=== PATIENT | male | born 1950 | race Caucasian/White ===

== ENCOUNTER → 2016-04-15 | Outpatient (CLI) | payer MEDICARE, BC ==
[2016-04-15 15:50] LABS: CH 31.1; CHCM 32.7; HDW 2.25; HGB 13.4 gm/dL (13.0-17.5); MCH 30.5 pg (25.0-35.0); MCHC 31.9 g/dL (31.0-37.0); MCV 95.5 fL (80.0-100.0); Mean Platelet Volume 8.9; RDW 13.2 % (11.5-15.5); WBC 6.6 k/uL (3.8-10.6)
[2016-04-15 16:01] LABS: ALT 34 U/L (21-72); AST 31 U/L (17-59); Alkaline Phosphatase 70 U/L (38-126); Anion Gap 10 mmol/L; Blood Urea Nitrogen 18 mg/dL (9-20); Calcium 9.2 mg/dL (8.4-10.2); Carbon Dioxide 29 mmol/L (22-30); Chloride 101 mmol/L (98-107); Glucose 82 mg/dL (74-99); Non-African American GFR(MDRD) >60 (>60 ml/min/1.73 sqM); Potassium 4.5 mmol/L (3.5-5.1); Sodium 140 mmol/L (137-145); Total Bilirubin 0.8 mg/dL (0.2-1.3); Total Protein 7.5 g/dL (6.3-8.2)
== END | disposition home or self-care (01) ==
LOC: LABPAT 15:12
PROVIDERS: ATTEND Surgery
DX: K40.90 Unilateral inguinal hernia, without obstruction or gangrene, not specified as recurrent (principal)
CPT/HCPCS: 80053; 85027

== ENCOUNTER 2016-04-30 07:48 | Day surgery (SDC) | payer MEDICARE, BC ==
[2016-04-25 16:03] VITALS: BMI 26.7
[~2016-04-30 07:48] MED LIST: CLINDAMYCIN 600 MG in DEXTROSE 5% IN WATER 50 ML IVPB ONE; DEXAMETHASONE SOD PHOSPHATE 10 MG/ML 1 ML VIAL IV ONE; HEPARIN SODIUM,PORCINE 5,000 UNIT/ML 1 ML VIAL SQ ONE; MIDAZOLAM 2 MG/2 ML VIAL IV PRN; ONDANSETRON 4 MG/2 ML VIAL IVP ONE
[2016-04-30] MEDS ORDERED: LIDOCAINE 1% 20 ML VIAL (10MG/ML) FOR IV START INTRADERMA ONE ×2 (09:38)
[2016-04-30] MEDS: LACTATED RINGERS 1,000 ML IV SCH ×4 (09:40→18:30)
[2016-04-30] MEDS ORDERED: LACTATED RINGERS 1,000 ML IV ONE (09:42)
--- NOTE | 2016-04-30 10:22 | P.GSHP ---
History of Present Illness H&P Date: 04/30/16 Chief Complaint: Recurrent right inguinal hernia This a 65-year-old male who presents today for laparoscopic robotic system repair of recurrent right inguinal hernia. He's developed a mass in his right groin. - Constitutional Constitutional: Reports as per HPI Past Medical History Past Medical History: Asthma, Hyperlipidemia, Hypertension, Osteoarthritis (OA) Additional Past Medical History / Comment(s): HERNIA History of Any Multi-Drug Resistant Organisms: None Reported Past Surgical History: Heart Catheterization, Hernia Repair, Orthopedic Surgery Additional Past Surgical History / Comment(s): right hand tendon surg., SALIVARY gland tumor removed, AORTA VALVE REPAIRED 01/10/2015& & AAA 2014 REPAIR IN [facility] Past Anesthesia/Blood Transfusion Reactions: No Reported Reaction Past Psychological History: Anxiety Additional Psychological History / Comment(s): past hx. Smoking Status: Former smoker Past Alcohol Use History: None Reported Additional Past Alcohol Use History / Comment(s): QUIT SMOKING AT AGE 38 Past Drug Use History: None Reported - Past Family History Mother Family Medical History: No Reported History Medications and Allergies Home Medications Medication Instructions Recorded Confirmed Type Budesonide-Formot 160-4.5 Mcg 2 puff INHALATION BID 03/02/14 04/30/16 History [Symbicort 160-4.5 Mcg Inhaler] Multivitamin [Men's Multi-Vitamin] 1 each PO DAILY 03/02/14 04/30/16 History Ramipril [Altace] 5 mg PO HS 03/02/14 04/30/16 History guaiFENesin [Mucinex] 1,200 mg PO BID PRN 03/02/14 04/30/16 History Aspirin [Adult Low Dose Aspirin EC] 81 mg PO DAILY 04/25/16 04/30/16 History Atorvastatin Calcium [Atorvastatin 10 mg PO DAILY 04/25/16 04/30/16 History Calcium] Carvedilol [Coreg] 6.25 mg PO BID 04/25/16 04/30/16 History Fish Oil/Dha/Epa [Fish Oil 1,200 1 each PO DAILY 04/25/16 04/30/16 History mg Fish Oil] Allergies Allergy/AdvReac Type Severity Reaction Status Date / Time amoxicillin AdvReac Itching Verified 04/30/16 08:48 Surgical - Exam Vital Signs Temp Pulse Resp BP Pulse Ox 97.5 F L 55 L 18 130/89 99 04/30/16 09:01 04/30/16 09:01 04/30/16 09:01 04/30/16 09:01 04/30/16 09:01 - General well developed, no distress - Eyes PERRL - ENT normal pinna - Neck no masses - Respiratory normal expansion - Cardiovascular Rhythm: regular - Abdomen Abdomen: soft, non tender Hernia: inguinal, reducible Assessment and Plan Plan: Recurrent right inguinal hernia. We'll perform laparoscopic robotic system repair.
[2016-04-30] MEDS ORDERED: GLYCOPYRROLATE 0.2 MG/ML 2 ML VIAL ONE (10:36)
[2016-04-30] MEDS ORDERED: fentaNYL (PF) 50 MCG/ML 2 ML AMP ONE (10:36)
[2016-04-30] MEDS ORDERED: PROPOFOL 10 MG/ML 20 ML VIAL IV ONE (10:36)
[2016-04-30] MEDS ORDERED: NEOSTIGMINE 1 MG/ML 10 ML VIAL ONE (10:36)
[2016-04-30] MEDS ORDERED: ROCURONIUM BROMIDE 10 MG/ML 10 ML VIAL IV ONE (10:36)
[2016-04-30] MEDS ORDERED: SUCCINYLCHOLINE CHLORIDE 100 MG/5 ML SYR IV ONE (10:36)
[2016-04-30] MEDS ORDERED: LIDOCAINE 1% INJ 10MG/ML (20 ML MDV) ONE (10:36)
[2016-04-30] MEDS ORDERED: BUPIVACAIN-EPI 0.25%-1:200,000 30 ML VIAL SQ ONE ×2 (11:08)
--- NOTE | 2016-04-30 11:47 | P.OP ---
Date of Procedure: 04/30/16 Preoperative Diagnosis: Recurrent right inguinal hernia Postoperative Diagnosis: Recurrent right we will hernia Procedure(s) Performed: Laparoscopic robotic-assisted repair of recurrent right internal hernia Anesthesia: NAZIA Surgeon: Sherif Hope Pathology: none sent Condition: stable Disposition: PACU Description of Procedure: The patient's placed on the operating table in the supine position. The patient received general anesthesia. The patient's abdomen was prepped and draped in usual sterile fashion. The skin was anesthetized 1% local Xylocaine at the incision sites. Using an 11 blade a skin incision was made at the umbilicus. The fascia was grasped with a Talib and then the peritoneal cavity was entered with the Veress needle. Position of the Veress needle was confirmed with a positive drop test. After adequate insufflation a 5 mm trocar was placed into the peritoneal cavity. The Laparoscope was placed the peritoneal cavity. And a robotic 8 mm trocar was placed in the right lateral position and then another 8 mm robotic trochars placed in the left lateral position. The original 5 mm trocar was exchanged for a 12 mm trocar. The patient was placed in reverse Trendelenburg and then the patient was docked to the robot. Next the peritoneum over top of the hernia was incised and then using blunt and sharp dissection and electrocautery the hernia sac was dissected free from the floor of the inguinal canal. The hernia sac was completely reduced into the peritoneal cavity. There was mesh from his previous repair seen. The hernia was just lateral to the mesh. And then using the [employer] livestock yard mesh the hernia was repaired. The peritoneum was then sutured with 20V lock suture. The patient was then undocked the robot. The needle was withdrawn from the peritoneal cavity. The umbilical trocar site was closed with 0 Ethibond suture. The skin was closed interrupted 3-0 Monocryl suture. Dermabond dressing was applied. Patient was sent to recovery in stable condition.
[2016-04-30 12:00] VITALS: TEMP 97.4
[2016-04-30] MEDS: HYDROmorphone 1 MG/ML 1 ML SYRINGE IVP PRN ×4 (12:08→12:39)
[2016-04-30] MEDS ORDERED: HYDROcodone/APAP 7.5-325MG 1 EACH TAB PO ONE (14:18)
[2016-04-30 15:28] VITALS: RESP 18
[2016-04-30 18:09] VITALS: BP 142/81; PULSE 70
[2016-04-30] MEDS ORDERED: ONDANSETRON 4 MG/2 ML VIAL IVP ONE (18:27)
== END 2016-04-30 18:51 | disposition home or self-care (01) ==
LOC: OR 07:48
PROVIDERS: ATTEND Surgery
DX: K40.91 Unilateral inguinal hernia, without obstruction or gangrene, recurrent (principal); J45.909 Unspecified asthma, uncomplicated; I10 Essential (primary) hypertension; E78.5 Hyperlipidemia, unspecified; M19.90 Unspecified osteoarthritis, unspecified site; Z87.891 Personal history of nicotine dependence; Z79.82 Long term (current) use of aspirin; Z79.899 Other long term (current) drug therapy; Z88.0 Allergy status to penicillin
CPT/HCPCS: 49651; C1781; J2250; J1644; J1100; J2710; J2405; J2001; J3010; J1170; J0330; J2704

== ENCOUNTER 2019-01-18 17:25 | Emergency (ER) | payer MEDICARE, BC ==
[2019-01-18 17:30] VITALS: BP 152/93; PULSE 66; RESP 18; TEMP 98.2
[2019-01-18] MEDS ORDERED: DIPH,PERTUS(ACELL)TETVAC-LF 0.5 ML VIAL IM ONE (17:51)
[2019-01-18] MEDS ORDERED: TOPICAL SKIN ADHESIVE 1 EACH AMP TOPICAL ONE (17:52)
--- NOTE | 2019-01-18 18:04 | ED ---
General Adult HPI - General Chief complaint: Head Injury Stated complaint: head injury Time Seen by Provider: 01/18/19 17:45 Source: patient, RN notes reviewed, old records reviewed Mode of arrival: ambulatory Limitations: no limitations - History of Present Illness Initial comments: 68-year-old male presents with head injury above the left eye. Patient was lifting himself up onto a wood rack in the steel bar broke free striking him in the left forehead just above the left eye. He did fall backwards and had momentary loss consciousness. Denying significant pain at the time my evaluation, states 3 out of 10 pain. He had significant bleeding from laceration above the eye. No pain in the eye itself. No neck or back injury. No other complaints. He is not on anticoagulation. - Related Data Home Medications Medication Instructions Recorded Confirmed Budesonide-Formot 160-4.5 Mcg 2 puff INHALATION BID 03/02/14 04/30/16 [Symbicort 160-4.5 Mcg Inhaler] Multivitamin [Men's Multi-Vitamin] 1 each PO DAILY 03/02/14 04/30/16 Ramipril [Altace] 5 mg PO HS 03/02/14 04/30/16 guaiFENesin [Mucinex] 1,200 mg PO BID PRN 03/02/14 04/30/16 Aspirin [Adult Low Dose Aspirin EC] 81 mg PO DAILY 04/25/16 04/30/16 Atorvastatin Calcium 10 mg PO DAILY 04/25/16 04/30/16 Carvedilol [Coreg] 6.25 mg PO BID 04/25/16 04/30/16 Fish Oil/Dha/Epa [Fish Oil 1,200 1 each PO DAILY 04/25/16 04/30/16 mg Fish Oil] Previous Rx's Medication Instructions Recorded HYDROcodone/APAP 7.5-325MG [[place] 1 each PO Q4H PRN #60 tab 04/30/16 7.5] Allergies Allergy/AdvReac Type Severity Reaction Status Date / Time amoxicillin AdvReac Itching Verified 01/18/19 17:29 Review of Systems ROS Statement: Those systems with pertinent positive or pertinent negative responses have been documented in the HPI. ROS Other: All systems not noted in ROS Statement are negative. Past Medical History Past Medical History: Asthma, Hyperlipidemia, Hypertension, Osteoarthritis (OA) Additional Past Medical History / Comment(s): HERNIA History of Any Multi-Drug Resistant Organisms: None Reported Past Surgical History: Heart Catheterization, Hernia Repair, Orthopedic Surgery Additional Past Surgical History / Comment(s): right hand tendon surg., SALIVARY gland tumor removed, AORTA VALVE REPAIRED 01/10/2015& & AAA 01/10/2015 REPAIR IN [facility] Past Anesthesia/Blood Transfusion Reactions: No Reported Reaction Past Psychological History: Anxiety Smoking Status: Former smoker Past Alcohol Use History: None Reported Past Drug Use History: None Reported - Past Family History Mother Family Medical History: No Reported History General Exam Limitations: no limitations General appearance: alert, in no apparent distress Head exam: Present: atraumatic, normocephalic Eye exam: Present: PERRL, EOMI, periorbital swelling, periorbital tenderness (1 cm linear laceration above the left eyebrow no active bleeding) ENT exam: Present: normal exam Neck exam: Present: normal inspection. Absent: tenderness, meningismus Respiratory exam: Present: normal lung sounds bilaterally. Absent: respiratory distress, wheezes Cardiovascular Exam: Present: regular rate, normal rhythm GI/Abdominal exam: Present: soft. Absent: distended, tenderness Extremities exam: Present: normal inspection, normal capillary refill. Absent: pedal edema Back exam: Present: normal inspection Neurological exam: Present: alert, oriented X3, CN II-XII intact, other (Interactive, laughing, no acute distress). Absent: motor sensory deficit Psychiatric exam: Present: normal affect, normal mood Skin exam: Present: warm, dry, other (1 cm linear laceration above the left eyebrow, partial thickness) Course Vital Signs 01/18/19 17:26 Temperature 98.2 F Pulse Rate 66 Respiratory 18 Rate Blood Pressure 152/93 O2 Sat by Pulse 99 Oximetry Procedures - Laceration Laceration #1 Consent Obtained: verbal consent Indication: laceration Site: face Description: linear, clean Depth: simple, single layer Pre-repair: wound explored Type of Sutures: other (Skin adhesive) Patient Tolerated Procedure: well Medical Decision Making - Medical Decision Making 68-year-old male with head injury. Head CT performed negative for intracranial hemorrhage or mass effect, no bony abnormality. Wound is cleansed with chlorhexidine and repaired with skin adhesive. This was a 1 cm partial thickness linear laceration above the left eyebrow. Patient will follow-up with his primary care physician. Disposition Clinical Impression: Concussion without loss of consciousness, Laceration Disposition: HOME SELF-CARE Instructions (If sedation given, give patient instructions): Concussion (ED), Laceration (ED) Is patient prescribed a controlled substance at d/c from ED?: No Referrals: Son Wilcox DO [Primary Care Provider] - 1-2 days Time of Disposition: 18:52
--- NOTE | 2019-01-18 18:29 | CT ---
EXAMINATION TYPE: CT brain wo con DATE OF EXAM: 01/18/2019 COMPARISON: None HISTORY: frontal trauma CT DLP: 1151 mGycm Automated exposure control for dose reduction was used. FINDINGS: Ventricles have normal size. There is no mass effect nor midline shift. There is no sign of intracran ial hemorrhage. The calvarium is intact. IMPRESSION: NEGATIVE HEAD CT SCAN.
== END 2019-01-18 19:10 | disposition home or self-care (01) ==
LOC: EC 17:25
DX: S06.0X0A Concussion without loss of consciousness, initial encounter (principal); S01.81XA Laceration without foreign body of other part of head, initial encounter; J45.909 Unspecified asthma, uncomplicated; E78.5 Hyperlipidemia, unspecified; I10 Essential (primary) hypertension; M19.90 Unspecified osteoarthritis, unspecified site; Z87.891 Personal history of nicotine dependence; Z88.0 Allergy status to penicillin; Z79.51 Long term (current) use of inhaled steroids; Z79.82 Long term (current) use of aspirin; Z79.899 Other long term (current) drug therapy; Z23 Encounter for immunization; W22.8XXA Striking against or struck by other objects, initial encounter; W19.XXXA Unspecified fall, initial encounter; Y93.89 Activity, other specified; Y92.009 Unspecified place in unspecified non-institutional (private) residence as the place of occurrence of the external cause
CPT/HCPCS: 12011; 70450; 90471; 90715; 99284

== ENCOUNTER 2019-01-29 10:50 | Emergency (ER) | payer MEDICARE, BC ==
[2019-01-29 11:00] VITALS: TEMP 97.8
[2019-01-29] MEDS ORDERED: SODIUM CHLORIDE 0.9% 1,000 ML IV STA ×2 (11:46)
[2019-01-29 12:07] LABS: Basophils % (A) 0 %; Eosinophils # (A) 0.1 k/uL (0-0.7); Eosinophils % (A) 1 %; HCT 40.7 % (39.0-53.0); HGB 13.3 gm/dL (13.0-17.5); Lymphocytes # (A) 1.2 k/uL (1.0-4.8); Lymphocytes % (A) 19 %; MCH 30.5 pg (25.0-35.0); MCHC 32.7 g/dL (31.0-37.0); MCV 93.2 fL (80.0-100.0); Mean Platelet Volume 8.4; Monocytes # (A) 0.5 k/uL (0-1.0); Monocytes % (A) 7 %; Neutrophils # (A) 4.5 k/uL (1.3-7.7); Neutrophils % (A) 70 %; Platelet Count 192 k/uL (150-450); RBC 4.37 m/uL (4.30-5.90); WBC 6.4 k/uL (3.8-10.6)
[2019-01-29 12:20] LABS: Partial Thromboplastin Time 27.7 sec (22.0-30.0); Prothrombin Time 10.9 sec (9.0-12.0)
[2019-01-29 12:21] LABS: ALT 40 U/L (21-72); AST 37 U/L (17-59); African American GFR (CKD) >90 (>60 ml/min/1.73 sqM); Albumin 4.2 g/dL (3.5-5.0); Alkaline Phosphatase 75 U/L (38-126); Anion Gap 8 mmol/L; Blood Urea Nitrogen 18 mg/dL (9-20); Calcium 9.3 mg/dL (8.4-10.2); Carbon Dioxide 26 mmol/L (22-30); Chloride 105 mmol/L (98-107); Glucose 77 mg/dL (74-99); Non-African American GFR(CKD) 85 (>60 ml/min/1.73 sqM); Potassium 4.8 mmol/L (3.5-5.1); Sodium 139 mmol/L (137-145); Total Protein 7.1 g/dL (6.3-8.2)
--- NOTE | 2019-01-29 12:24 | XR ---
EXAMINATION TYPE: XR chest 2V DATE OF EXAM: 01/29/2019 HISTORY: dysrhythmia. REFERENCE: Previous study dated 02/17/2014. FINDINGS: There has been interval midline sternotomy. Lung volumes are prominent. The lungs themselves are clear. Pleural space are clear. The heart is not enlarged. IMPRESSION: NO ACUTE INTRATHORACIC ABNORMALITY.
--- NOTE | 2019-01-29 12:33 | ED ---
Arrhythmia/Palpitations HPI - General Chief Complaint: Arrhythmia/Palpitations Stated Complaint: Irregular heart rate Time Seen by Provider: 01/29/19 11:26 Source: patient, RN notes reviewed, old records reviewed Mode of arrival: ambulatory Limitations: no limitations - History of Present Illness Initial Comments: Patient 60-year-old male presents return today for evaluation for abnormal arryhtmias that are picked up on his blood pressure machine intermittently taking for the past 2 weeks. Patient reports that his blood pressure machine shows occasionally that he has an arrythmia, but denies any symptoms of palpitations, or chest pain. Patient reports this occurs sometimes in morning and sometimes at night when he takes it, and is never consistent. Patient reports he is doing all normal activities. Patient doesreport that he has anxiety and this was worrying him. - Related Data Home Medications Medication Instructions Recorded Confirmed Budesonide-Formot 160-4.5 Mcg 2 puff INHALATION BID 03/02/14 04/30/16 [Symbicort 160-4.5 Mcg Inhaler] Multivitamin [Men's Multi-Vitamin] 1 each PO DAILY 03/02/14 04/30/16 Ramipril [Altace] 5 mg PO HS 03/02/14 04/30/16 guaiFENesin [Mucinex] 1,200 mg PO BID PRN 03/02/14 04/30/16 Aspirin [Adult Low Dose Aspirin EC] 81 mg PO DAILY 04/25/16 04/30/16 Atorvastatin Calcium 10 mg PO DAILY 04/25/16 04/30/16 Carvedilol [Coreg] 6.25 mg PO BID 04/25/16 04/30/16 Fish Oil/Dha/Epa [Fish Oil 1,200 1 each PO DAILY 04/25/16 04/30/16 mg Fish Oil] Previous Rx's Medication Instructions Recorded HYDROcodone/APAP 7.5-325MG [[place] 1 each PO Q4H PRN #60 tab 04/30/16 7.5] Allergies Allergy/AdvReac Type Severity Reaction Status Date / Time amoxicillin AdvReac Itching Verified 01/29/19 10:56 Review of Systems ROS Statement: Those systems with pertinent positive or pertinent negative responses have been documented in the HPI. ROS Other: All systems not noted in ROS Statement are negative. Past Medical History Past Medical History: Asthma, Hyperlipidemia, Hypertension, Osteoarthritis (OA) Additional Past Medical History / Comment(s): HERNIA History of Any Multi-Drug Resistant Organisms: None Reported Past Surgical History: Heart Catheterization, Hernia Repair, Orthopedic Surgery Additional Past Surgical History / Comment(s): right hand tendon surg., SALIVARY gland tumor removed, AORTA VALVE REPAIRED 01/10/2015& & AAA 01/10/2015 REPAIR IN [facility] Past Anesthesia/Blood Transfusion Reactions: No Reported Reaction Past Psychological History: Anxiety Smoking Status: Former smoker Past Alcohol Use History: None Reported Past Drug Use History: None Reported - Past Family History Mother Family Medical History: No Reported History General Exam - General Exam Comments Initial Comments: Pleasant 68 year old male, no distress. Limitations: no limitations General appearance: alert, in no apparent distress Head exam: Present: atraumatic, normocephalic, normal inspection Eye exam: Present: normal appearance, PERRL, EOMI. Absent: scleral icterus, conjunctival injection, periorbital swelling ENT exam: Present: normal exam, mucous membranes moist Neck exam: Present: normal inspection. Absent: tenderness, meningismus, lymphadenopathy Respiratory exam: Present: normal lung sounds bilaterally. Absent: respiratory distress, wheezes, rales, rhonchi, stridor Cardiovascular Exam: Present: regular rate, normal rhythm, normal heart sounds. Absent: systolic murmur, diastolic murmur, rubs, gallop, clicks GI/Abdominal exam: Present: soft, normal bowel sounds. Absent: distended, tenderness, guarding, rebound, rigid Back exam: Present: normal inspection Neurological exam: Present: alert, oriented X3, CN II-XII intact Psychiatric exam: Present: normal affect, normal mood Skin exam: Present: warm, dry, intact, normal color. Absent: rash Course Vital Signs 01/29/19 01/29/19 10:56 13:06 Temperature 97.8 F Pulse Rate 65 59 L Respiratory 18 16 Rate Blood Pressure 140/80 139/92 O2 Sat by Pulse 99 97 Oximetry Medical Decision Making - Medical Decision Making 68 year old male with occasional arrythmia on at home blood pressure monitor and anxiety. He has history of aortic valve replacement. In ED patient has normal sinus rhythm, PAtient denies any symptoms. At this time patient has normal labs, and EKG shows occasional PVC, and discussed this is likely what monitor is picking up occasionally. Discussed if he has no symptoms this is not anything to worry about at this time, and discussed he can follow up with his PCP and dental insurance biller. - Lab Data Result diagrams: 01/29/19 11:17 01/29/19 11:17 Lab Results 01/29/19 01/29/19 01/29/19 Range/Units 11:17 11:17 11:17 WBC 6.4 (3.8-10.6) k/uL RBC 4.37 (4.30-5.90) m/uL Hgb 13.3 (13.0-17.5) gm/dL Hct 40.7 (39.0-53.0) % MCV 93.2 (80.0-100.0) fL MCH 30.5 (25.0-35.0) pg MCHC 32.7 (31.0-37.0) g/dL RDW 13.0 (11.5-15.5) % Plt Count 192 (150-450) k/uL Neutrophils % 70 % Lymphocytes % 19 % Monocytes % 7 % Eosinophils % 1 % Basophils % 0 % Neutrophils # 4.5 (1.3-7.7) k/uL Lymphocytes # 1.2 (1.0-4.8) k/uL Monocytes # 0.5 (0-1.0) k/uL Eosinophils # 0.1 (0-0.7) k/uL Basophils # 0.0 (0-0.2) k/uL PT 10.9 (9.0-12.0) sec INR 1.0 (<1.2) APTT 27.7 (22.0-30.0) sec Sodium 139 (137-145) mmol/L Potassium 4.8 (3.5-5.1) mmol/L Chloride 105 (98-107) mmol/L Carbon Dioxide 26 (22-30) mmol/L Anion Gap 8 mmol/L BUN 18 (9-20) mg/dL Creatinine 0.92 (0.66-1.25) mg/dL Est GFR (CKD-EPI)AfAm >90 (>60 ml/min/1.73 sqM) Est GFR (CKD-EPI)NonAf 85 (>60 ml/min/1.73 sqM) Glucose 77 (74-99) mg/dL Calcium 9.3 (8.4-10.2) mg/dL Magnesium 2.0 (1.6-2.3) mg/dL Total Bilirubin 1.0 (0.2-1.3) mg/dL AST 37 (17-59) U/L ALT 40 (21-72) U/L Alkaline Phosphatase 75 (38-126) U/L Troponin I (0.000-0.034) ng/mL Total Protein 7.1 (6.3-8.2) g/dL Albumin 4.2 (3.5-5.0) g/dL TSH 2.710 (0.465-4.680) mIU/L Urine Color Urine Appearance (Clear) Urine pH (5.0-8.0) Ur Specific [place] (1.001-1.035) Urine Protein (Negative) Urine Glucose (UA) (Negative) Urine Ketones (Negative) Urine Blood (Negative) Urine Nitrite (Negative) Urine Bilirubin (Negative) Urine Urobilinogen (<2.0) mg/dL Ur Leukocyte Esterase (Negative) 01/29/19 01/29/19 Range/Units 11:17 13:11 WBC (3.8-10.6) k/uL RBC (4.30-5.90) m/uL Hgb (13.0-17.5) gm/dL Hct (39.0-53.0) % MCV (80.0-100.0) fL MCH (25.0-35.0) pg MCHC (31.0-37.0) g/dL RDW (11.5-15.5) % Plt Count (150-450) k/uL Neutrophils % % Lymphocytes % % Monocytes % % Eosinophils % % Basophils % % Neutrophils # (1.3-7.7) k/uL Lymphocytes # (1.0-4.8) k/uL Monocytes # (0-1.0) k/uL Eosinophils # (0-0.7) k/uL Basophils # (0-0.2) k/uL PT (9.0-12.0) sec INR (<1.2) APTT (22.0-30.0) sec Sodium (137-145) mmol/L Potassium (3.5-5.1) mmol/L Chloride (98-107) mmol/L Carbon Dioxide (22-30) mmol/L Anion Gap mmol/L BUN (9-20) mg/dL Creatinine (0.66-1.25) mg/dL Est GFR (CKD-EPI)AfAm (>60 ml/min/1.73 sqM) Est GFR (CKD-EPI)NonAf (>60 ml/min/1.73 sqM) Glucose (74-99) mg/dL Calcium (8.4-10.2) mg/dL Magnesium (1.6-2.3) mg/dL Total Bilirubin (0.2-1.3) mg/dL AST (17-59) U/L ALT (21-72) U/L Alkaline Phosphatase (38-126) U/L Troponin I <0.012 (0.000-0.034) ng/mL Total Protein (6.3-8.2) g/dL Albumin (3.5-5.0) g/dL TSH (0.465-4.680) mIU/L Urine Color Light Yellow Urine Appearance Clear (Clear) Urine pH 7.0 (5.0-8.0) Ur Specific [place] 1.003 (1.001-1.035) Urine Protein Negative (Negative) Urine Glucose (UA) Negative (Negative) Urine Ketones Negative (Negative) Urine Blood Negative (Negative) Urine Nitrite Negative (Negative) Urine Bilirubin Negative (Negative) Urine Urobilinogen <2.0 (<2.0) mg/dL Ur Leukocyte Esterase Negative (Negative) 01/29/19 12:32 EKG shows sinus rhythm with premature super ventricular, axis. Left bundle branch block. Abnormal EKG. Jugular rate of 63 bpm. Was 192 ms. QS duration 136 most seconds. QT QTc is 456/466 ms. - Radiology Data Radiology results: report reviewed Interpreted by me: CXR is negative for acute intrathoracic abnormality. Disposition Clinical Impression: PVC (premature ventricular contraction) Disposition: HOME SELF-CARE Condition: Good Instructions (If sedation given, give patient instructions): Heart Palpitations (ED) Additional Instructions: Follow-up with your primary care doctor and cardiology. Return to the emergency department if any alarming signs or symptoms occur. Is patient prescribed a controlled substance at d/c from ED?: No Referrals: Son Wilcox DO [Primary Care Provider] - 1-2 days Time of Disposition: 13:36
[2019-01-29 13:07] VITALS: BP 139/92; PULSE 59; RESP 16
[2019-01-29 13:14] LABS: Appearance,Urine Clear (Clear); Bilirubin,Urine Negative (Negative); Blood,Urine Negative (Negative); Color,Urine Light Yellow; Glucose,Urine (UA) Negative (Negative); Ketones,Urine Negative (Negative); Leukocyte Esterase,Urine Negative (Negative); Nitrite,Urine Negative (Negative); Protein,Urine Negative (Negative); Specific Gravity,Urine 1.003 (1.001-1.035); Urobilinogen,Urine <2.0 mg/dL (<2.0)
== END 2019-01-29 13:42 | disposition home or self-care (01) ==
LOC: EC 10:50
DX: I49.3 Ventricular premature depolarization (principal); J45.909 Unspecified asthma, uncomplicated; E78.5 Hyperlipidemia, unspecified; I10 Essential (primary) hypertension; Z79.51 Long term (current) use of inhaled steroids; Z79.82 Long term (current) use of aspirin; Z79.02 Long term (current) use of antithrombotics/antiplatelets; Z79.899 Other long term (current) drug therapy; Z88.0 Allergy status to penicillin; Z87.891 Personal history of nicotine dependence
CPT/HCPCS: 36415; 71046; 80053; 81003; 83735; 84443; 84484; 85025; 85610; 85730; 93005; 96360; 96361; 99285

== ENCOUNTER → 2019-02-14 | Outpatient (CLI) | payer MEDICARE, BC ==
--- NOTE | 2019-02-17 12:51 | HM ---
HOLTER MONITOR REPORT The patient was monitored for 24 hours. The baseline rhythm is a sinus mechanism with intraventricular conduction delay. The average rate 66 beats per minute, minimum of 42, maximum 101 beats per minute. Ventricular ectopic activity was present in the form of rare single PVCs. There was episode of bigeminy. Supraventricular ectopic activity was present in the form of rare single PACs. No diary was available. CONCLUSION: 1. Sinus mechanism baseline rhythm with intraventricular conduction delay. 2. Rare ventricular ectopic activity. 3. Rare supraventricular ectopic activity. 4. No diary was available. MMODL / IJN: [id number] /
== END | disposition home or self-care (01) ==
LOC: RADECHMAIN 11:59
PROVIDERS: ATTEND Family Medicine
DX: I49.1 Atrial premature depolarization (principal)
CPT/HCPCS: 93225; 93226

== ENCOUNTER 2019-03-31 08:55 | Emergency (ER) | payer MEDICARE, BC ==
[2019-03-31 09:02] VITALS: TEMP 97.7
--- NOTE | 2019-03-31 10:22 | ED ---
General Adult HPI - General Chief complaint: Recheck/Abnormal Lab/Rx Stated complaint: elevated blood pressure Source: patient Mode of arrival: ambulatory Limitations: no limitations - History of Present Illness Initial comments: The patient is a 60-year-old male with past history of hypertension and valve replacement who presents emergency room with reported high blood pressure. He states that he takes his blood pressure daily. He went outside and cleaning the car. He went back inside and took his blood pressure. It was 150/90 and he became extremely concerned. He took his blood pressure several more times and each time it increased. This alerted him to come in to the chart for evaluation. He states he's astigmatic from a he denies any chest pain or shortness of breath. No headaches or visual changes. No ripping or transitioned to his back. He does not take any blood thinners. States that he follows with a locomotive engineer diesel out of [facility]. This physician does regulate his blood pressure medications. He takes losartan and Coreg. Follows with Dr. Wilcox in [facility]. There are allevating, Perceptin or modifying factors - Related Data Home Medications Medication Instructions Recorded Confirmed Budesonide-Formot 160-4.5 Mcg 2 puff INHALATION RT-BID 03/02/14 03/31/19 [Symbicort 160-4.5 Mcg Inhaler] guaiFENesin [Mucinex] 1,200 mg PO BID PRN 03/02/14 03/31/19 Aspirin [Adult Low Dose Aspirin EC] 81 mg PO DAILY 04/25/16 03/31/19 Atorvastatin Calcium 10 mg PO DAILY 04/25/16 03/31/19 Carvedilol [Coreg] 6.25 mg PO BID-W/MEALS 04/25/16 03/31/19 Fish Oil/Dha/Epa [Fish Oil 1,200 1 each PO DAILY 04/25/16 03/31/19 mg Fish Oil] Albuterol Sulfate [Proair Hfa] 1 - 2 puff INHALATION RT-Q6H PRN 03/31/19 03/31/19 Fluticasone Nasal [place] [Flonase 2 spr EA NOSTRIL DAILY PRN 03/31/19 03/31/19 Nasal [place]] Losartan [Cozaar] 50 mg PO DAILY 03/31/19 03/31/19 Allergies Allergy/AdvReac Type Severity Reaction Status Date / Time amoxicillin AdvReac Itching Verified 03/31/19 10:28 Review of Systems ROS Statement: Those systems with pertinent positive or pertinent negative responses have been documented in the HPI. ROS Other: All systems not noted in ROS Statement are negative. Past Medical History Past Medical History: Asthma, Hyperlipidemia, Hypertension, Osteoarthritis (OA) Additional Past Medical History / Comment(s): HERNIA History of Any Multi-Drug Resistant Organisms: None Reported Past Surgical History: Heart Catheterization, Hernia Repair, Orthopedic Surgery Additional Past Surgical History / Comment(s): right hand tendon surg., SALIVARY gland tumor removed, AORTA VALVE REPAIRED 01/10/2015& & AAA 01/10/2015 REPAIR IN [facility] Past Anesthesia/Blood Transfusion Reactions: No Reported Reaction Past Psychological History: Anxiety Smoking Status: Former smoker Past Alcohol Use History: None Reported Past Drug Use History: None Reported - Past Family History Mother Family Medical History: No Reported History General Exam Limitations: no limitations Course Vital Signs 03/31/19 03/31/19 03/31/19 08:57 09:01 10:01 Temperature 97.7 F Pulse Rate 74 72 Respiratory 18 20 20 Rate Blood Pressure 152/86 123/88 O2 Sat by Pulse 97 99 Oximetry 03/31/19 10:31 Temperature Pulse Rate Respiratory 18 Rate Blood Pressure O2 Sat by Pulse Oximetry Medical Decision Making - Medical Decision Making Upon arrival the patient was placed into room 11. A thorough history and physical exam is performed. Patient does have repetitive blood pressures obtained and demonstrated a blood pressure of 139 systolic and 123 systolic. I did discuss this with the patient. He is provided with education. This time he did not want to change the patient's blood pressure regimen. As he is not symptomatic, no further testing is necessary. I did recommend that the patient take his blood pressures twice daily. Keep a log and follow up with his primary care physician for this. Return to the emergency department for any new or worsening symptoms. The patient is discharged with stable condition Disposition Clinical Impression: Hypertension Disposition: HOME SELF-CARE Condition: Stable Instructions (If sedation given, give patient instructions): Hypertension (ED) Additional Instructions: Please follow up regarding your episode of hypertension. Return to the emergency room for any new worsening symptoms Is patient prescribed a controlled substance at d/c from ED?: No Referrals: Son Wilcox DO [Primary Care Provider] - 1-2 days Time of Disposition: 10:21
[2019-03-31 10:31] VITALS: BP 123/88; PULSE 72
[2019-03-31 10:32] VITALS: RESP 18
== END 2019-03-31 10:32 | disposition home or self-care (01) ==
LOC: EC 08:55
DX: I10 Essential (primary) hypertension (principal); J45.909 Unspecified asthma, uncomplicated; E78.5 Hyperlipidemia, unspecified; Z79.82 Long term (current) use of aspirin; Z79.02 Long term (current) use of antithrombotics/antiplatelets; Z79.899 Other long term (current) drug therapy; Z88.0 Allergy status to penicillin; Z87.891 Personal history of nicotine dependence
CPT/HCPCS: 99283

== ENCOUNTER 2020-11-13 18:15 | Emergency (ER) | payer MEDICARE, BC ==
[2020-11-13] MEDS ORDERED: SODIUM CHLORIDE 0.9% 1,000 ML IV STA (19:20)
[2020-11-13 19:38] LABS: Basophils % (A) 0 %; Eosinophils # (A) 0.2 k/uL (0-0.7); Eosinophils % (A) 3 %; HCT 37.9 % (39.0-53.0); HGB 13.1 gm/dL (13.0-17.5); Lymphocytes # (A) 0.6 k/uL (1.0-4.8); Lymphocytes % (A) 10 %; MCH 31.7 pg (25.0-35.0); MCHC 34.6 g/dL (31.0-37.0); MCV 91.6 fL (80.0-100.0); Mean Platelet Volume 9.1; Monocytes # (A) 0.5 k/uL (0-1.0); Monocytes % (A) 9 %; Neutrophils # (A) 4.2 k/uL (1.3-7.7); Neutrophils % (A) 76 %; Platelet Count 169 k/uL (150-450); RBC 4.13 m/uL (4.30-5.90); WBC 5.5 k/uL (3.8-10.6)
[2020-11-13 19:49] LABS: Partial Thromboplastin Time 25.7 sec (22.0-30.0); Prothrombin Time 10.6 sec (9.0-12.0)
--- NOTE | 2020-11-13 19:50 | ED ---
General Adult HPI - General Chief complaint: Upper Respiratory Infection Stated complaint: cough, SOB Time Seen by Provider: 11/13/20 19:13 Source: patient Mode of arrival: ambulatory Limitations: no limitations - History of Present Illness Initial comments: 70-year-old male with history of coronary artery disease, dyslipidemia, hypertension presenting to the emergency department with a chief complaint of cough, congestion, fevers. Patient reports the started approximately 2 days ago when he began to have a nonproductive cough with a bit of a sore throat. Patient also reports a history of valve replacement at the [facility]. Patient did report having some upper sternal chest tightness without radiation. Denies any associated dyspnea. States she has been taking Tylenol for the fever. However he denies any rhinorrhea or otalgia. He denies any abdominal pain back pain, headaches, blurry vision, one-sided weakness or paresthesias. Covid vaccinated. - Related Data Home Medications Medication Instructions Recorded Confirmed Budesonide-Formot 160-4.5 Mcg 2 puff INHALATION RT-BID 03/02/14 03/31/19 [Symbicort 160-4.5 Mcg Inhaler] guaiFENesin [Mucinex] 1,200 mg PO BID PRN 03/02/14 03/31/19 Aspirin [Adult Low Dose Aspirin EC] 81 mg PO DAILY 04/25/16 03/31/19 Atorvastatin Calcium 10 mg PO DAILY 04/25/16 03/31/19 Fish Oil/Dha/Epa [Fish Oil 1,200 1 each PO DAILY 04/25/16 03/31/19 mg Fish Oil] carvediloL [Coreg] 6.25 mg PO BID-W/MEALS 04/25/16 03/31/19 Albuterol Sulfate [Proair Hfa] 1 - 2 puff INHALATION RT-Q6H PRN 03/31/19 03/31/19 Fluticasone Nasal [place] [Flonase 2 spr EA NOSTRIL DAILY PRN 03/31/19 03/31/19 Nasal [place]] Losartan [Cozaar] 50 mg PO DAILY 03/31/19 03/31/19 Allergies Allergy/AdvReac Type Severity Reaction Status Date / Time amoxicillin AdvReac Itching Verified 11/13/20 21:07 Review of Systems ROS Statement: Those systems with pertinent positive or pertinent negative responses have been documented in the HPI. ROS Other: All systems not noted in ROS Statement are negative. Past Medical History Past Medical History: Asthma, Hyperlipidemia, Hypertension, Osteoarthritis (OA) Additional Past Medical History / Comment(s): HERNIA History of Any Multi-Drug Resistant Organisms: None Reported Past Surgical History: Heart Catheterization, Hernia Repair, Orthopedic Surgery Additional Past Surgical History / Comment(s): right hand tendon surg., SALIVARY gland tumor removed, AORTA VALVE REPAIRED 01/10/2015& & AAA 01/10/2015 REPAIR IN [facility] Past Anesthesia/Blood Transfusion Reactions: No Reported Reaction Past Psychological History: Anxiety Smoking Status: Former smoker Past Alcohol Use History: None Reported Past Drug Use History: None Reported - Past Family History Mother Family Medical History: No Reported History General Exam Limitations: no limitations General appearance: alert, in no apparent distress Head exam: Present: atraumatic, normocephalic, normal inspection Eye exam: Present: normal appearance, PERRL, EOMI Pupils: Present: normal accommodation ENT exam: Present: normal exam, normal oropharynx, mucous membranes moist, TM's normal bilaterally, normal external ear exam Neck exam: Present: normal inspection, full ROM. Absent: tenderness, lymphadenopathy Respiratory exam: Present: normal lung sounds bilaterally. Absent: respiratory distress, wheezes, rales, rhonchi, stridor, chest wall tenderness, accessory muscle use Cardiovascular Exam: Present: regular rate, normal rhythm, systolic murmur. Absent: diastolic murmur GI/Abdominal exam: Present: soft. Absent: distended, tenderness, guarding, rebound Extremities exam: Present: normal inspection, full ROM, normal capillary refill, other (Palpable DP and PT bilaterally.). Absent: tenderness, pedal edema, joint swelling, calf tenderness Back exam: Present: normal inspection, full ROM. Absent: tenderness Neurological exam: Present: alert, oriented X3, CN II-XII intact, normal gait Psychiatric exam: Present: normal affect, normal mood Skin exam: Present: warm, dry, intact, normal color Course Vital Signs 11/13/20 11/13/20 11/13/20 18:44 20:10 20:55 Temperature 99.5 F 99.1 F Pulse Rate 75 68 Respiratory 18 18 18 Rate Blood Pressure 132/84 145/79 O2 Sat by Pulse 98 97 Oximetry EKG Findings - EKG Comments: EKG Findings:: Left bundle branch block, sinus rhythm. Ventricular rate 67, CT 190, QRS 144, QTC 469. Medical Decision Making - Medical Decision Making 70-year-old male with history of coronary artery disease, dyslipidemia, hypertension presenting to the emergency department with a chief complaint of cough, congestion, fevers. On physical examination, patient is well-appearing. Vital signs are within normal limits. Laboratory work reveals positive coronavirus. Chest x-ray is unremarkable. Negative d-dimer and troponin. Patient given monoclonal antibody. He was observed in the emergency department. Patient feels well and will be discharged. Return parameters were thoroughly discussed the patient was understanding and agreeable. - Lab Data Result diagrams: 11/13/20 19:22 11/13/20 19: Lab Results 11/13/20 11/13/20 11/13/20 Range/Units 19: 19: 19: WBC 5.5 (3.8-10.6) k/uL RBC 4.13 L (4.30-5.90) m/uL Hgb 13.1 (13.0-17.5) gm/dL Hct 37.9 L (39.0-53.0) % MCV 91.6 (80.0-100.0) fL MCH 31.7 (25.0-35.0) pg MCHC 34.6 (31.0-37.0) g/dL RDW 14.0 (11.5-15.5) % Plt Count 169 (150-450) k/uL MPV 9.1 Neutrophils % 76 % Lymphocytes % 10 % Monocytes % 9 % Eosinophils % 3 % Basophils % 0 % Neutrophils # 4.2 (1.3-7.7) k/uL Lymphocytes # 0.6 L (1.0-4.8) k/uL Monocytes # 0.5 (0-1.0) k/uL Eosinophils # 0.2 (0-0.7) k/uL Basophils # 0.0 (0-0.2) k/uL PT 10.6 (9.0-12.0) sec INR 1.0 (<1.2) APTT 25.7 (22.0-30.0) sec Sodium 132 L (137-145) mmol/L Potassium 4.3 (3.5-5.1) mmol/L Chloride 101 (98-107) mmol/L Carbon Dioxide 23 (22-30) mmol/L Anion Gap 8 mmol/L BUN 22 H (9-20) mg/dL Creatinine 1.09 (0.66-1.25) mg/dL Est GFR (CKD-EPI)AfAm 79 (>60 ml/min/1.73 sqM) Est GFR (CKD-EPI)NonAf 68 (>60 ml/min/1.73 sqM) Glucose 100 H (74-99) mg/dL Calcium 8.5 (8.4-10.2) mg/dL Magnesium 2.0 (1.6-2.3) mg/dL Total Bilirubin 0.7 (0.2-1.3) mg/dL AST 35 (17-59) U/L ALT 29 (4-49) U/L Alkaline Phosphatase 87 (38-126) U/L Troponin I (0.000-0.034) ng/mL Total Protein 6.6 (6.3-8.2) g/dL Albumin 3.9 (3.5-5.0) g/dL Coronavirus (PCR) (Not Detectd) 11/13/20 11/13/20 Range/Units 19:22 19:22 WBC (3.8-10.6) k/uL RBC (4.30-5.90) m/uL Hgb (13.0-17.5) gm/dL Hct (39.0-53.0) % MCV (80.0-100.0) fL MCH (25.0-35.0) pg MCHC (31.0-37.0) g/dL RDW (11.5-15.5) % Plt Count (150-450) k/uL MPV Neutrophils % % Lymphocytes % % Monocytes % % Eosinophils % % Basophils % % Neutrophils # (1.3-7.7) k/uL Lymphocytes # (1.0-4.8) k/uL Monocytes # (0-1.0) k/uL Eosinophils # (0-0.7) k/uL Basophils # (0-0.2) k/uL PT (9.0-12.0) sec INR (<1.2) APTT (22.0-30.0) sec Sodium (137-145) mmol/L Potassium (3.5-5.1) mmol/L Chloride (98-107) mmol/L Carbon Dioxide (22-30) mmol/L Anion Gap mmol/L BUN (9-20) mg/dL Creatinine (0.66-1.25) mg/dL Est GFR (CKD-EPI)AfAm (>60 ml/min/1.73 sqM) Est GFR (CKD-EPI)NonAf (>60 ml/min/1.73 sqM) Glucose (74-99) mg/dL Calcium (8.4-10.2) mg/dL Magnesium (1.6-2.3) mg/dL Total Bilirubin (0.2-1.3) mg/dL AST (17-59) U/L ALT (4-49) U/L Alkaline Phosphatase (38-126) U/L Troponin I <0.012 (0.000-0.034) ng/mL Total Protein (6.3-8.2) g/dL Albumin (3.5-5.0) g/dL Coronavirus (PCR) Detected A (Not Detectd) Disposition Clinical Impression: COVID-19 Disposition: HOME SELF-CARE Condition: Stable Instructions (If sedation given, give patient instructions): Coronavirus Disease 2019 (COVID-19) Additional Instructions: Please return to the Emergency Department if symptoms worsen or any other concerns. Follow covid-19th protocol as discussed. Is patient prescribed a controlled substance at d/c from ED?: No Referrals: Son Wilcox DO [Primary Care Provider] - 1-2 days Time of Disposition: 21:14
[2020-11-13 19:51] LABS: Albumin 3.9 g/dL (3.5-5.0); Calcium 8.5 mg/dL (8.4-10.2); Potassium 4.3 mmol/L (3.5-5.1); Total Bilirubin 0.7 mg/dL (0.2-1.3); Total Protein 6.6 g/dL (6.3-8.2)
[2020-11-13] MEDS ORDERED: SODIUM CHLORIDE 0.9% 50 ML IVPB ONE (20:15)
[2020-11-13] MEDS ORDERED: CASIRIVIMAB/IMDEVIMAB (EUA) 1,200 MG in SODIUM CHLORIDE 0.9% 100 ML IVPB ONE (20:45)
[2020-11-13 20:56] VITALS: TEMP 99.1
--- NOTE | 2020-11-13 20:57 | XR ---
EXAMINATION TYPE: XR chest 2V DATE OF EXAM: 11/13/2020 COMPARISON: 01/29/2019 HISTORY: Chest pain and cough TECHNIQUE: Frontal and lateral views of the chest are obtained. FINDINGS: There is no focal air space opacity, pleural effusion, or pneumothorax seen. The cardiac silhouette size is within normal limits. The osseous structures are intact. Prior cardiothoracic po stsurgical changes seen. IMPRESSION: No acute cardiopulmonary process.
[2020-11-13 22:46] VITALS: BP 147/87; PULSE 67; RESP 16
== END 2020-11-13 22:10 | disposition home or self-care (01) ==
LOC: EC 18:15
DX: U07.1 COVID-19 (principal); I10 Essential (primary) hypertension; E78.5 Hyperlipidemia, unspecified; J45.909 Unspecified asthma, uncomplicated; M19.90 Unspecified osteoarthritis, unspecified site; F41.9 Anxiety disorder, unspecified; Z79.82 Long term (current) use of aspirin; Z79.899 Other long term (current) drug therapy; Z79.51 Long term (current) use of inhaled steroids; Z88.1 Allergy status to other antibiotic agents
CPT/HCPCS: 36415; 93005; 80053; 83735; 84484; 85025; 85610; 85730; 87635; 71046; 99285; 96365; 96361; Q0243

== ENCOUNTER 2022-01-20 09:00 | Emergency (ER) | payer MEDICARE, BC ==
[2022-01-20 09:33] VITALS: TEMP 97.4
--- NOTE | 2022-01-20 09:57 | ED ---
Extremity Problem HPI - General Chief complaint: Extremity Problem,Nontraumatic Stated complaint: Rt. Hip Pain Time Seen by Provider: 01/20/22 09:33 Source: patient, RN notes reviewed Mode of arrival: ambulatory Limitations: no limitations - History of Present Illness Initial comments: Patient is a 71 year old male presenting to the ER with a chief complaint of right back pain. Patient states he first noticed this , 01/16/22. He denies any trauma or injuries. He describes it as right lower back pain with a tightness felling radiating down his thigh with certain movements. Patient states the pain is the worst when first laying down and it takes awhile for the pain to subside. He has taken Tylenol arthritis, used heating pads, ice, pain relief cream and lidocaine patches for pain relief. Denies incontinence or paraesthesias. Patient denies any other complaints at this time. - Related Data Home Medications Medication Instructions Recorded Confirmed Budesonide-Formot 160-4.5 Mcg 2 puff INHALATION RT-BID 03/02/14 11/13/20 [Symbicort 160-4.5 Mcg Inhaler] Aspirin [Adult Low Dose Aspirin EC] 81 mg PO DAILY 04/25/16 11/13/20 Atorvastatin Calcium 10 mg PO HS 04/25/16 11/13/20 carvediloL [Coreg] 6.25 mg PO BID-W/MEALS 04/25/16 11/13/20 Albuterol Sulfate [Proair Hfa] 2 puff INHALATION RT-Q6H PRN 03/31/19 11/13/20 Losartan [Cozaar] 50 mg PO DAILY 03/31/19 11/13/20 Multivitamins, Thera [Multivitamin 1 tab PO DAILY 11/13/20 11/13/20 (formulary)] Previous Rx's Medication Instructions Recorded Azithromycin [Zithromax Z-pack (6 0 mg PO DIRECTED #1 packet 11/13/20 tabs)] Cyclobenzaprine [Flexeril] 5 mg PO TID PRN #15 tablet 01/20/22 Lidocaine 5% Patch [Lidoderm 5% 1 patch TOPICAL DAILY #10 patch 01/20/22 Patch] predniSONE 50 mg PO DAILY #5 tab 01/20/22 Allergies Allergy/AdvReac Type Severity Reaction Status Date / Time amoxicillin AdvReac Itching Verified 01/20/22 09:33 Review of Systems ROS Statement: Those systems with pertinent positive or pertinent negative responses have been documented in the HPI. ROS Other: All systems not noted in ROS Statement are negative. Past Medical History Past Medical History: Asthma, Hyperlipidemia, Hypertension, Osteoarthritis (OA) Additional Past Medical History / Comment(s): HERNIA History of Any Multi-Drug Resistant Organisms: None Reported Past Surgical History: Heart Catheterization, Hernia Repair, Orthopedic Surgery Additional Past Surgical History / Comment(s): right hand tendon surg., SALIVARY gland tumor removed, AORTA VALVE REPAIRED 01/10/2015& & AAA 01/10/2015 REPAIR IN [facility] Past Anesthesia/Blood Transfusion Reactions: No Reported Reaction Past Psychological History: Anxiety Smoking Status: Former smoker Past Alcohol Use History: None Reported Past Drug Use History: None Reported - Past Family History Mother Family Medical History: No Reported History General Exam Limitations: no limitations General appearance: alert, in no apparent distress Head exam: Present: atraumatic, normocephalic, normal inspection Eye exam: Present: normal appearance, PERRL, EOMI. Absent: scleral icterus, conjunctival injection, periorbital swelling ENT exam: Present: normal exam, mucous membranes moist Neck exam: Present: normal inspection. Absent: tenderness, meningismus, lymphadenopathy Respiratory exam: Present: normal lung sounds bilaterally. Absent: respiratory distress, wheezes, rales, rhonchi, stridor Cardiovascular Exam: Present: regular rate, normal rhythm, normal heart sounds. Absent: systolic murmur, diastolic murmur, rubs, gallop, clicks GI/Abdominal exam: Present: soft, normal bowel sounds. Absent: distended, tenderness, guarding, rebound, rigid Extremities exam: Present: normal inspection, tenderness Back exam: Present: normal inspection, full ROM, tenderness (PSIS) Neurological exam: Present: alert, oriented X3, CN II-XII intact Psychiatric exam: Present: normal affect, normal mood Skin exam: Present: other (contusion to right dorsal foot ) Course Vital Signs 01/20/22 09:29 Temperature 97.4 F L Pulse Rate 78 Respiratory 18 Rate Blood Pressure 150/100 O2 Sat by Pulse 98 Oximetry Medical Decision Making - Medical Decision Making 71-year-old presented for right leg pain, low back and hip pain. X-ray read shows evidence of degenerative changes of the right hip, lumbar spine with spondylosis. Patient is neurovascular intact with no red flag symptoms. Patient treated for a lumbar radiculopathy. Temperature is were discussed. Disposition Clinical Impression: Lumbar radiculopathy, acute Disposition: HOME SELF-CARE Condition: Stable Instructions (If sedation given, give patient instructions): Lumbar Radi culopathy (ED) Additional Instructions: Please return to the Emergency Department if symptoms worsen or any other concerns. Prescriptions: Cyclobenzaprine [Flexeril] 5 mg PO TID PRN #15 tablet PRN Reason: Muscle Spasm Lidocaine 5% Patch [Lidoderm 5% Patch] 1 patch TOPICAL DAILY #10 patch predniSONE 50 mg PO DAILY #5 tab Is patient prescribed a controlled substance at d/c from ED?: No Referrals: Son Wilcox DO [Primary Care Provider] - 1-2 days Time of Disposition: 10:51
--- NOTE | 2022-01-20 10:45 | XR ---
EXAMINATION TYPE: XR Hip RT and AP Pelvis DATE OF EXAM: 01/20/2022 COMPARISON: None HISTORY: Right hip pain TECHNIQUE: Right hip is examined in 2 views supplemented with an AP pelvis FINDINGS: Femoral heads articulate with the acetabulum. Symphysis pubis and sacroiliac joints appear normal. No acute fractures are evident. Right Femoral head articulates with the acetabulum. Joint spaces mild narrowing. No acute fracture is evident. Follow up exams can be performed 7-10 days acute trauma for continued pain. IMPRESSION: 1. Mild degenerative changes right hip. No acute osseous abnormalities evident.
--- NOTE | 2022-01-20 10:48 | XR ---
EXAMINATION TYPE: XR lumbar spine 2 or 3V DATE OF EXAM: 01/20/2022 COMPARISON: None HISTORY: Lower back pain TECHNIQUE: 5 view lumbar spine FINDINGS: There is a scoliosis present with a convexity to the right centered at L3. Degenerative dis c changes are present with loss of disc height most evident at L3-4 L4-5. Additional disc space narro wing is noted at L2-3 and L1-2 and T12-L1. Spondylosis is evident. No spondylolisthesis is evident. V ertebral body heights appear preserved. There are 5 lumbar-type vertebral bodies. The pedicles are in tact. IMPRESSION: 1. Scoliosis with convexity to the right. This can be related to patient positioning or muscle spasm . 2. Degenerative disc changes greatest L3-4 L4-5. 3. Spondylosis.
[2022-01-20 11:26] VITALS: BP 147/98; PULSE 75; RESP 15
== END 2022-01-20 11:25 | disposition home or self-care (01) ==
LOC: EC 09:00
DX: M54.16 Radiculopathy, lumbar region (principal); J45.909 Unspecified asthma, uncomplicated; E78.5 Hyperlipidemia, unspecified; I10 Essential (primary) hypertension; Z88.1 Allergy status to other antibiotic agents; Z87.891 Personal history of nicotine dependence; Z79.82 Long term (current) use of aspirin; Z79.899 Other long term (current) drug therapy; Z79.51 Long term (current) use of inhaled steroids
CPT/HCPCS: 72100; 73502; 99284

== ENCOUNTER 2022-01-21 03:49 | Emergency (ER) | payer MEDICARE, BC ==
[2022-01-21 06:19] LABS: Basophils % (A) 0 %; Eosinophils # (A) 0.1 k/uL (0-0.7); Eosinophils % (A) 1 %; HCT 40.7 % (39.0-53.0); HGB 13.7 gm/dL (13.0-17.5); Lymphocytes # (A) 1.1 k/uL (1.0-4.8); Lymphocytes % (A) 13 %; MCH 31.4 pg (25.0-35.0); MCHC 33.7 g/dL (31.0-37.0); MCV 93.3 fL (80.0-100.0); Monocytes # (A) 0.6 k/uL (0-1.0); Monocytes % (A) 7 %; Neutrophils # (A) 6.8 k/uL (1.3-7.7); Neutrophils % (A) 78 %; Platelet Count 192 k/uL (150-450); RBC 4.36 m/uL (4.30-5.90); RDW 13.1 % (11.5-15.5); WBC 8.7 k/uL (3.8-10.6)
[2022-01-21 06:28] LABS: Partial Thromboplastin Time 25.8 sec (22.0-30.0); Prothrombin Time 10.8 sec (9.0-12.0)
[2022-01-21 06:30] LABS: ALT 34 U/L (4-49); AST 33 U/L (17-59); African American GFR (CKD) >90 (>60 ml/min/1.73 sqM); Albumin 4.4 g/dL (3.5-5.0); Alkaline Phosphatase 96 U/L (38-126); Anion Gap 5 mmol/L; Blood Urea Nitrogen 19 mg/dL (9-20); Calcium 9.3 mg/dL (8.4-10.2); Carbon Dioxide 26 mmol/L (22-30); Chloride 104 mmol/L (98-107); Glucose 96 mg/dL (74-99); Non-African American GFR(CKD) >90 (>60 ml/min/1.73 sqM); Potassium 4.4 mmol/L (3.5-5.1); Sodium 135 mmol/L (137-145); Total Bilirubin 0.6 mg/dL (0.2-1.3)
--- NOTE | 2022-01-21 06:40 | ED ---
General Adult HPI - General Chief complaint: Recheck/Abnormal Lab/Rx Stated complaint: Reaction to medication Time Seen by Provider: 01/21/22 04:05 Source: patient Mode of arrival: ambulatory - History of Present Illness Initial comments: 71-year-old male with past medical history of aortic aneurysm with valvular repair who presents to the emergency department reporting restlessness. States he was seen in our emergency room earlier today for lumbar radiculopathy. He was started on Flexeril and prednisone. Filled his prescriptions and took his first dose around noon today. States that at night the patient began feeling jittery. He had insomnia and was unable to sleep. [place] like his heart was pounding. Took his blood pressure which was found to be elevated. Due to his history of aortic aneurysm he was frightened by the high blood pressure and decided to come into the emergency room for evaluation. Denies any recent use of steroids. He denies chest. Vomiting. No fevers. No other alleviating, academic tutor modifying factors - Related Data Home Medications Medication Instructions Recorded Confirmed Budesonide-Formot 160-4.5 Mcg 2 puff INHALATION RT-BID 03/02/14 11/13/20 [Symbicort 160-4.5 Mcg Inhaler] Aspirin [Adult Low Dose Aspirin EC] 81 mg PO DAILY 04/25/16 11/13/20 Atorvastatin Calcium 10 mg PO HS 04/25/16 11/13/20 carvediloL [Coreg] 6.25 mg PO BID-W/MEALS 04/25/16 11/13/20 Albuterol Sulfate [Proair Hfa] 2 puff INHALATION RT-Q6H PRN 03/31/19 11/13/20 Losartan [Cozaar] 50 mg PO DAILY 03/31/19 11/13/20 Multivitamins, Thera [Multivitamin 1 tab PO DAILY 11/13/20 11/13/20 (formulary)] Previous Rx's Medication Instructions Recorded Azithromycin [Zithromax Z-pack (6 0 mg PO DIRECTED #1 packet 11/13/20 tabs)] Cyclobenzaprine [Flexeril] 5 mg PO TID PRN #15 tablet 01/20/22 Lidocaine 5% Patch [Lidoderm 5% 1 patch TOPICAL DAILY #10 patch 01/20/22 Patch] predniSONE 50 mg PO DAILY #5 tab 01/20/22 Allergies Allergy/AdvReac Type Severity Reaction Status Date / Time amoxicillin AdvReac Itching Verified 01/21/22 04:06 Review of Systems ROS Statement: Those systems with pertinent positive or pertinent negative responses have been documented in the HPI. ROS Other: All systems not noted in ROS Statement are negative. Past Medical History Past Medical History: Asthma, Hyperlipidemia, Hypertension, Osteoarthritis (OA) Additional Past Medical History / Comment(s): HERNIA History of Any Multi-Drug Resistant Organisms: None Reported Past Surgical History: Heart Catheterization, Hernia Repair, Orthopedic Surgery Additional Past Surgical History / Comment(s): right hand tendon surg., SALIVARY gland tumor removed, AORTA VALVE REPAIRED 01/10/2015& & AAA 01/10/2015 REPAIR IN [facility] Past Anesthesia/Blood Transfusion Reactions: No Reported Reaction Past Psychological History: Anxiety Smoking Status: Former smoker Past Alcohol Use History: None Reported Past Drug Use History: None Reported - Past Family History Mother Family Medical History: No Reported History General Exam General appearance: alert, in no apparent distress Head exam: Present: atraumatic, normocephalic, normal inspection Eye exam: Present: normal appearance, PERRL, EOMI. Absent: scleral icterus, conjunctival injection, periorbital swelling ENT exam: Present: normal exam, mucous membranes moist Neck exam: Present: normal inspection. Absent: tenderness, meningismus, lymphadenopathy Respiratory exam: Present: normal lung sounds bilaterally. Absent: respiratory distress, wheezes, rales, rhonchi, stridor Cardiovascular Exam: Present: regular rate, normal rhythm, normal heart sounds. Absent: systolic murmur, diastolic murmur, rubs, gallop, clicks GI/Abdominal exam: Present: soft, normal bowel sounds. Absent: distended, tenderness, guarding, rebound, rigid Extremities exam: Present: normal inspection, full ROM, normal capillary refill. Absent: tenderness, pedal edema, joint swelling, calf tenderness Back exam: Present: normal inspection Neurological exam: Present: alert, oriented X3, CN II-XII intact Psychiatric exam: Present: normal affect, normal mood Skin exam: Present: warm, dry, intact, normal color. Absent: rash Course Vital Signs 01/21/22 01/21/22 01/21/22 04:01 05:23 06:01 Temperature 98 F Pulse Rate 64 63 Respiratory 19 16 16 Rate Blood Pressure 156/94 146/97 159/89 O2 Sat by Pulse 99 98 100 Oximetry 01/21/22 08:00 Temperature 98.7 F Pulse Rate 72 Respiratory 18 Rate Blood Pressure 148/68 O2 Sat by Pulse 99 Oximetry EKG Findings - EKG Comments: EKG Findings:: EKG demonstrates sinus bradycardia with a rate of 56. [place] interval 195. QRS 152. QTC of 456. He has a left bundle branch block. Negative for sgarbossa criteria. EKG was interpreted by myself Medical Decision Making - Medical Decision Making Arrival patient was placed into room 15. Thorough history and physical exam is performed. IV access was established laboratory studies are conducted. Laboratory studies are reviewed by myself with no abnormal labs. 12-lead EKG was performed. I did discuss the diagnosis, differential and treatment options. He does have improvement in his blood pressure without medication and estrogen. Inform the patient that his symptoms are likely due to medication side effect from the prednisone. Patient is to discontinue the medication at this time. NSAIDs for pain control. Follow up with his primary care doctor return for any new or worsening symptoms. Reevaluate his blood pressure in 2 days. Patient understood and was agreeable and was discharged home in stable condition. - Lab Data Result diagrams: 01/21/22 06:01 01/21/22 06:01 Lab Results 01/21/22 01/21/22 01/21/22 Range/Units 06:01 06:01 06:01 WBC 8.7 (3.8-10.6) k/uL RBC 4.36 (4.30-5.90) m/uL Hgb 13.7 (13.0-17.5) gm/dL Hct 40.7 (39.0-53.0) % MCV 93.3 (80.0-100.0) fL MCH 31.4 (25.0-35.0) pg MCHC 33.7 (31.0-37.0) g/dL RDW 13.1 (11.5-15.5) % Plt Count 192 (150-450) k/uL MPV 9.0 Neutrophils % 78 % Lymphocytes % 13 % Monocytes % 7 % Eosinophils % 1 % Basophils % 0 % Neutrophils # 6.8 (1.3-7.7) k/uL Lymphocytes # 1.1 (1.0-4.8) k/uL Monocytes # 0.6 (0-1.0) k/uL Eosinophils # 0.1 (0-0.7) k/uL Basophils # 0.0 (0-0.2) k/uL PT 10.8 (9.0-12.0) sec INR 1.0 (<1.2) APTT 25.8 (22.0-30.0) sec Sodium 135 L (137-145) mmol/L Potassium 4.4 (3.5-5.1) mmol/L Chloride 104 (98-107) mmol/L Carbon Dioxide 26 (22-30) mmol/L Anion Gap 5 mmol/L BUN 19 (9-20) mg/dL Creatinine 0.78 (0.66-1.25) mg/dL Est GFR (CKD-EPI)AfAm >90 (>60 ml/min/1.73 sqM) Est GFR (CKD-EPI)NonAf >90 (>60 ml/min/1.73 sqM) Glucose 96 (74-99) mg/dL Calcium 9.3 (8.4-10.2) mg/dL Magnesium 2.0 (1.6-2.3) mg/dL Total Bilirubin 0.6 (0.2-1.3) mg/dL AST 33 (17-59) U/L ALT 34 (4-49) U/L Alkaline Phosphatase 96 (38-126) U/L Troponin I (0.000-0.034) ng/mL Total Protein 7.0 (6.3-8.2) g/dL Albumin 4.4 (3.5-5.0) g/dL TSH 2.100 (0.465-4.680) mIU/L 01/21/22 Range/Units 06:01 WBC (3.8-10.6) k/uL RBC (4.30-5.90) m/uL Hgb (13.0-17.5) gm/dL Hct (39.0-53.0) % MCV (80.0-100.0) fL MCH (25.0-35.0) pg MCHC (31.0-37.0) g/dL RDW (11.5-15.5) % Plt Count (150-450) k/uL MPV Neutrophils % % Lymphocytes % % Monocytes % % Eosinophils % % Basophils % % Neutrophils # (1.3-7.7) k/uL Lymphocytes # (1.0-4.8) k/uL Monocytes # (0-1.0) k/uL Eosinophils # (0-0.7) k/uL Basophils # (0-0.2) k/uL PT (9.0-12.0) sec INR (<1.2) APTT (22.0-30.0) sec Sodium (137-145) mmol/L Potassium (3.5-5.1) mmol/L Chloride (98-107) mmol/L Carbon Dioxide (22-30) mmol/L Anion Gap mmol/L BUN (9-20) mg/dL Creatinine (0.66-1.25) mg/dL Est GFR (CKD-EPI)AfAm (>60 ml/min/1.73 sqM) Est GFR (CKD-EPI)NonAf (>60 ml/min/1.73 sqM) Glucose (74-99) mg/dL Calcium (8.4-10.2) mg/dL Magnesium (1.6-2.3) mg/dL Total Bilirubin (0.2-1.3) mg/dL AST (17-59) U/L ALT (4-49) U/L Alkaline Phosphatase (38-126) U/L Troponin I <0.012 (0.000-0.034) ng/mL Total Protein (6.3-8.2) g/dL Albumin (3.5-5.0) g/dL TSH (0.465-4.680) mIU/L Disposition Clinical Impression: Lumbar radiculopathy, acute Disposition: HOME SELF-CARE Condition: Stable Instructions (If sedation given, give patient instructions): Adverse Drug Reaction (ED) Additional Instructions: Stop taking the prednisone. Follow-up with your doctor. Return for any new or worsening symptoms Is patient prescribed a controlled substance at d/c from ED?: No Referrals: Son Wilcox DO [Primary Care Provider] - 1-2 days Time of Disposition: 07:59
[2022-01-21 08:29] VITALS: BP 148/68; PULSE 72; RESP 18; TEMP 98.7
== END 2022-01-21 08:00 | disposition home or self-care (01) ==
LOC: EC 03:49
DX: M54.16 Radiculopathy, lumbar region (principal); J45.909 Unspecified asthma, uncomplicated; I10 Essential (primary) hypertension; E78.5 Hyperlipidemia, unspecified; M19.90 Unspecified osteoarthritis, unspecified site; F41.9 Anxiety disorder, unspecified; Z87.891 Personal history of nicotine dependence; Z88.0 Allergy status to penicillin; Z79.82 Long term (current) use of aspirin; Z79.899 Other long term (current) drug therapy
CPT/HCPCS: 36415; 80053; 83735; 84443; 84484; 85025; 85610; 85730; 93005; 99283